=== PATIENT | male | born 1980 | race Caucasian/White ===

== ENCOUNTER 2020-07-13 08:40 | Emergency (ER) | payer OTHER, SELFPAY ==
[2020-07-13] MEDS ORDERED: Lidocaine 1% PF 5 ML VIAL ONE (09:36)
[2020-07-13] MEDS ORDERED: Bacitracin 1 PK ONE (09:58)
== END 2020-07-13 10:15 | disposition home or self-care (01) ==
LOC: BURERS 08:40
DX: L02.31 Cutaneous abscess of buttock (principal); I10 Essential (primary) hypertension; F17.220 Nicotine dependence, chewing tobacco, uncomplicated
CPT/HCPCS: 46050

== ENCOUNTER 2022-03-12 01:07 | Emergency (ER) | payer BC, SELFPAY ==
[2022-03-12] MEDS ORDERED: HYDROcodone/Acetaminophen 10/325 mg Tablet ONE (01:28)
[2022-03-12] MEDS ORDERED: predniSONE 20 MG TAB ONE (01:29)
[2022-03-12] MEDS ORDERED: Cyclobenzaprine 10 MG TAB ONE (01:29)
== END 2022-03-12 01:39 | disposition home or self-care (01) ==
LOC: BURERS 01:07
DX: M62.830 Muscle spasm of back (principal); I10 Essential (primary) hypertension; M10.9 Gout, unspecified; F17.220 Nicotine dependence, chewing tobacco, uncomplicated
CPT/HCPCS: 99283; J7512